=== PATIENT | female | born 1975 | race American Indian/Alaskan Native ===

== ENCOUNTER 2017-11-29 23:09 | Emergency (ER) | payer SELFPAY ==
[2017-11-29 23:47] LABS: Hemoglobin 12.9 gm/dl (10.1-14.3); Mean Corpuscular HGB Conc 34 % (30-34); Mean Corpuscular Hemoglobin 26 pg (28-32); Mean Corpuscular Volume 76 fl (79-97); Platelet Count 271 K/mm3 (140-440); Red Blood Count 4.99 M/mm3 (3.65-5.03); Red Cell Distribution Width 16.2 % (13.2-15.2)
[2017-11-30 00:08] LABS: BUN/Creatinine Ratio 31; Blood Urea Nitrogen 22 mg/dL (7-17); Calcium 9.8 mg/dL (8.4-10.2); Hemolysis Index 5
[2017-11-30] MEDS ORDERED: ZOFRAN ODT PO ONE (00:23)
[2017-11-30] MEDS ORDERED: LIDOCAINE VISCOUS 2% PO ONE (00:23)
[2017-11-30] MEDS ORDERED: ALUM-MAG HYDROX-SIMETH 200-200-20MG/5ML PO ONE (00:23)
--- NOTE | 2017-11-30 00:26 | XRay Report ---
FINAL REPORT EXAM: XR CHEST ROUTINE 2V HISTORY: Chest pain COMPARISON: None available. FINDINGS:: Frontal and lateral views of the chest obtained. Heart upper limits normal in size. Linear atelectasis at the left lung base. Lungs otherwise clear. No pneumothorax. IMPRESSION:: Heart upper limits normal in size. Linear atelectasis at the left lung base. Lungs otherwise clear.
--- NOTE | 2017-11-30 01:45 | Emergency Department Report ---
ED Chest Pain HPI - General Chief Complaint: Chest Pain Stated Complaint: CHEST PAIN Time Seen by Provider: 11/29/17 23:58 Source: patient Mode of arrival: Ambulatory Limitations: No Limitations - History of Present Illness Initial Comments: 1 day of substernal chest pain that is intermittent, radiating down the right arm, nonpleuritic, nonexertional, burning in nature, worse with food. Nonsmoker. Denies drinking or drug use. No family history of ACS. Had a pain similar to this before and it was diagnosed as gas. Severity scale (0 -10): 10 - Related Data Previous Rx's Medication Instructions Recorded Last Taken Type Famotidine [Pepcid] 20 mg PO DAILY #21 tablet 11/30/17 Unknown Rx Allergies Allergy/AdvReac Type Severity Reaction Status Date / Time No Known Allergies Allergy Verified 11/29/17 23:21 Heart Score - HEART Score History: Slightly suspicious EKG: Normal Age: < 45 Risk factors: No known risk factors Troponin: < normal limit HEART Score: 0 ED Review of Systems ROS: Stated complaint: CHEST PAIN Other details as noted in HPI Comment: All other systems reviewed and negative Constitutional: denies: chills, fever Eyes: denies: eye pain, eye discharge, vision change ENT: denies: ear pain, throat pain Respiratory: denies: cough, shortness of breath, wheezing Cardiovascular: chest pain. denies: palpitations Endocrine: no symptoms reported Gastrointestinal: denies: abdominal pain, nausea, diarrhea Genitourinary: denies: urgency, dysuria, discharge Musculoskeletal: denies: back pain, joint swelling, arthralgia Skin: denies: rash, lesions Neurological: denies: headache, weakness, paresthesias Psychiatric: denies: anxiety, depression Hematological/Lymphatic: denies: easy bleeding, easy bruising ED Past Medical Hx - Past Medical History Previous Medical History?: No - Surgical History Past Surgical History?: No - Social History Smoking Status: Never Smoker Substance Use Type: None - Medications Home Medications: Home Medications Medication Instructions Recorded Confirmed Last Taken Type Famotidine [Pepcid] 20 mg PO DAILY #21 tablet 11/30/17 Unknown Rx ED Physical Exam - General Limitations: No Limitations General appearance: alert, in no apparent distress - Head Head exam: Present: atraumatic, normocephalic - Eye Eye exam: Present: normal appearance - ENT ENT exam: Present: mucous membranes moist - Neck Neck exam: Present: normal inspection - Respiratory Respiratory exam: Present: normal lung sounds bilaterally. Absent: respiratory distress - Cardiovascular Cardiovascular Exam: Present: regular rate, normal rhythm. Absent: systolic murmur, diastolic murmur, rubs, gallop - GI/Abdominal GI/Abdominal exam: Present: soft, normal bowel sounds. Absent: tenderness - Extremities Exam Extremities exam: Present: normal inspection - Back Exam Back exam: Present: normal inspection - Neurological Exam Neurological exam: Present: alert, oriented X3 - Psychiatric Psychiatric exam: Present: normal affect, normal mood - Skin Skin exam: Present: warm, dry, intact, normal color. Absent: rash ED Course Vital Signs 11/29/17 11/29/17 11/29/17 23:08 23:21 23:48 Temperature 98.8 F 98.8 F 98.1 F Pulse Rate 87 89 81 Respiratory 18 22 Rate Blood Pressure 141/84 141/84 Blood Pressure 155/90 [Right] O2 Sat by Pulse 100 100 100 Oximetry 11/30/17 01:15 Temperature Pulse Rate 84 Respiratory 18 Rate Blood Pressure 163/85 Blood Pressure [Right] O2 Sat by Pulse 100 Oximetry ED Medical Decision Making - Lab Data Result diagrams: 11/29/17 23:30 11/29/17 23:30 - EKG Data -: EKG Interpreted by [facility] EKG shows normal: sinus rhythm, axis, intervals, QRS complexes, ST-T waves Rate: normal - EKG Data Interpretation: no acute changes - Radiology Data Radiology results: report reviewed, image reviewed - Medical Decision Making 42-year-old female with no significant past medical history that presents to the ER with chest pain. Vital signs are stable. Patient's well-appearing. EKG is nonischemic. Troponin is negative 1. Heart score is 0. Chest x-ray shows no focal process. Low suspicion for ACS. Patient was given a GI cocktail which improved her symptoms. Given history of chest pain that radiates down the right arm, I will obtain a delta troponin. If negative, patient will be discharged with Pepcid and PCP follow-up. 0326: Second troponin is negative. Patient feels much improved after the GI cocktail. This was followed by [facility]. She has been given written instructions on acid reflux. Clear for discharge. - Differential Diagnosis ACS, PE, pneumonia, pericarditis, GERD Critical care attestation.: If time is entered above; I have spent that time in minutes in the direct care of this critically ill patient, excluding procedure time. ED Disposition Clinical Impression: Chest pain, GERD (gastroesophageal reflux disease) Disposition: TO HOME OR SELFCARE Is pt being admited?: No Does the pt Need Aspirin: No Condition: Stable Instructions: Chest Pain (ED), Diet for Ulcers and Gastritis (ED), Gastritis ( ED) Prescriptions: Famotidine [Pepcid] 20 mg PO DAILY #21 tablet Referrals: [facility] [Outside] - 3-5 Days
[2017-11-30 01:53] VITALS: BP 163/85
[2017-11-30 02:24] LABS: Band Neutrophils # (Manual) 0.4 K/mm3; Basophils % (Manual) 0 % (0.0-1.8); Total Cells Counted 100
[2017-11-30 02:25] LABS: Anisocytosis 1+; Burr Cells Rare; Hypochromasia 1+
[2017-11-30] MEDS ORDERED: PEPCID PO ONE (02:33)
[2017-11-30] MEDS ORDERED: CARAFATE PO ONE (02:33)
== END 2017-11-30 03:38 | disposition home or self-care (01) ==
LOC: ED 23:09
DX: R07.9 Chest pain, unspecified (principal); K21.9 Gastro-esophageal reflux disease without esophagitis
CPT/HCPCS: 36415; 71046; 80048; 84484; 85007; 85025; 93005; 93010; 99284; Q0162